=== PATIENT | male | born 1990 | race Caucasian/White ===

== ENCOUNTER 2021-09-29 16:32 | Emergency (ER) | payer SELFPAY ==
[~2021-09-29] VITALS: Ht 170.2 cm; Wt 108.9 kg
[2021-09-29 17:04] VITALS: BP_SYST 145
--- NOTE | 2021-09-29 17:04 | NUR ---
Pt triaged and placed in hallway
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
--- NOTE | 2021-09-29 17:15 | NUR ---
ER DR. QUIROS AT THE BEDSIDE EXAMINING PT
[2021-09-29] MEDS: DIPH-TET-PERTUS Vaccine 0.5 ML VIAL (ADACEL) I.M. ONE (17:43)
[2021-09-29] MEDS: BACITRACIN 1 GM OINT TP ONE (17:44)
[2021-09-29 17:46] VITALS: BP_SYST 145
--- NOTE | 2021-09-29 17:46 | NUR ---
Patient given written and verbal discharge instructions and verbalizes understanding. ER MD discussed with patient the results and treatment provided. Patient in stable condition. ID arm band removed. NO Rx given. Patient educated on pain management and to follow up with PMD. Pain Scale 0/10. Opportunity for questions provided and answered. Medication side effect fact sheet provided.
== END 2021-09-29 17:46 ==
LOC: SED 16:32
DX: S00.81XA Abrasion of other part of head, initial encounter (principal); X58.XXXA Exposure to other specified factors, initial encounter; Y93.89 Activity, other specified; Y92.89 Other specified places as the place of occurrence of the external cause; Y99.8 Other external cause status
CPT/HCPCS: 90715; 99283